=== PATIENT | male | born 2000 | race American Indian/Alaskan Native ===

== ENCOUNTER 2022-02-28 11:43 | Emergency (ER) | payer OTHER ==
[2022-02-28] MEDS ORDERED: SODIUM CHLORIDE 0.9% 1000 ML 1,000 ML IV ONE (12:30)
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
[2022-02-28 13:05] LABS: Hematocrit 47.5 % (35.5-45.6); Hemoglobin 15.7 gm/dl (11.8-15.2); Mean Corpuscular HGB Conc 33 % (32-34); Mean Corpuscular Volume 87 fl (84-94); Platelet Count 182 K/mm3 (140-440); Red Blood Count 5.49 M/mm3 (3.65-5.03); Red Cell Distribution Width 14.5 % (13.2-15.2)
[2022-02-28 13:13] LABS: Alanine Aminotransferase 45 units/L (7-56); Albumin 4.8 g/dL (3.9-5); BUN/Creatinine Ratio 9; Blood Urea Nitrogen 9 mg/dL (9-20); Calcium 9.7 mg/dL (8.4-10.2); Hemolysis Index 15
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
[2022-02-28] MEDS ORDERED: CYCLOBENZAPRINE 10 MG TAB PO ONE (14:25)
[2022-02-28] MEDS ORDERED: HYDROcodone/ACETAMINOPHEN 5-325 MG TAB PO ONE (14:25)
[2022-02-28 15:43] VITALS: BP 145/88
== END 2022-02-28 15:49 | disposition home or self-care (01) ==
LOC: ED 11:43
DX: S16.1XXA Strain of muscle, fascia and tendon at neck level, initial encounter (principal); S27.322A Contusion of lung, bilateral, initial encounter; R07.89 Other chest pain; F17.200 Nicotine dependence, unspecified, uncomplicated; Z72.89 Other problems related to lifestyle; V87.7XXA Person injured in collision between other specified motor vehicles (traffic), initial encounter; Y93.89 Activity, other specified; Y92.488 Other paved roadways as the place of occurrence of the external cause; Y99.8 Other external cause status
CPT/HCPCS: 36415; 71250; 74176; 80053; 82550; 85027; 96360; 99284